=== PATIENT | female | born 1940 | race Caucasian/White ===

== ENCOUNTER → 2019-01-31 11:29 | Outpatient (CLI) | payer MEDICARE, OTHER, SELFPAY ==
--- NOTE | 2019-01-31 11:32 | DI.RAD.S_ITS ---
PROCEDURE: XR LUMBAR SPINE MIN 4V INDICATIONS: Lumbosacral spondylosis TECHNIQUE: 5 views of the lumbar spine were acquired. COMPARISON: [facility], MR, MR LUMBAR SPINE W&WO CON, 05/15/2017, 11:07. MR, LUMBAR SPINE W/O CONTRAST, 08/27/2012, 13:27. [facility], CR, SPINE LUMB 2 OR 3VW, 01/15/2016, 11:01. FINDINGS: Bones: 5 [id number] vertebrae are present. There is mild levoscoliosis normal bony alignment. No vertebral body compression fractures. No suspicious bony lesions. There is degenerative disc disease, severe at L3-L4 and L4-L5, mild at L1-L2, L2-L3 and L5-S1. Moderate to severe facet arthropathy at L4-L5 and L5-S1. There is a right hip prosthesis. Soft tissues: Overlying bowel gas pattern is normal. No suspicious soft tissue calcifications. Oblique images: No pars defects. IMPRESSION: Severe degenerative disc disease and moderate to severe facet arthropathy in lumbar spine. Dictated by: Jazmyn Beck M.D. on 01/31/2019 at 17:19 Approved by: Jazmyn Beck M.D. on 01/31/2019 at 17:23
== END ==
PROVIDERS: PCP Registered Nurse; Visit Provider Physical Medicine & Rehabilitation
DX: M47.817 Spondylosis without myelopathy or radiculopathy, lumbosacral region (principal); M47.816 Spondylosis without myelopathy or radiculopathy, lumbar region; M51.36 Other intervertebral disc degeneration, lumbar region; M51.37 Other intervertebral disc degeneration, lumbosacral region; Z96.641 Presence of right artificial hip joint
CPT/HCPCS: 72110; 99215

== ENCOUNTER 2019-02-13 12:59 | Outpatient (CLI) | payer MEDICARE, OTHER, SELFPAY ==
--- NOTE | 2019-02-13 13:03 | DI.RAD.S_ITS ---
PROCEDURE: PAIN L/S TRANSFORAMINAL INJECT INDICATIONS: Lumbosacral spondylosis FINDINGS: Fluoroscopic spot filming was performed to verify placement of spinal needles at the right L2-3 neural foramen region level(s), as labeled on the films. Appropriate location(s) of the needle tip(s) was confirmed by injection of iodinated contrast. IMPRESSION: Right L2-3 neural foraminal localization for epidural steroid injection. Dictated by: Romeo Bonds M.D. on 02/13/2019 at 15:15 Approved by: Romeo Bonds M.D. on 02/13/2019 at 15:16
[2019-02-13 13:30] VITALS: BP 128/78; PULSE 72; RESP 16; TEMP 36.1; O2SAT 97
[2019-02-13 14:10] VITALS: BP 149/61; PULSE 65; RESP 18; O2SAT 94
[2019-02-13] MEDS: MIDAZOLAM 5 MG/5 ML VIAL IV (14:10)
[2019-02-13 14:15] VITALS: BP 126/63; PULSE 67; RESP 16; O2SAT 94
[2019-02-13] MEDS: fentaNYL 100 MCG/2 ML INJ 50 MCG IV (14:15)
[2019-02-13 14:20] VITALS: BP 115/65; PULSE 69; RESP 16; O2SAT 97
--- NOTE | 2019-02-13 14:32 | P.PCN_ITS ---
Procedures Date/Time Date of procedure: 02/13/19 Time of procedure: 14:31 General Procedure description: PROVIDER: Eric Allan DO Operative Note PREOP DIAGNOSIS 1. FORAMINAL STENOSIS WITH LE SYMPTOMS, POST OP DIAGNOSIS 1. FORAMINAL STENOSIS WITH LE SYMPTOMS, PROCEDURES 1. FLUOROSCOPICALLY GUIDED CONTRAST CONTROLLED TRANSFORAMINAL EPIDURAL STEROID INJECTION - RIGHT L3/4 TFESI SURGEON: Eric Allan, DO INDICATIONS Angelica is referred by JAVI Cornejo for treatment of Foraminal Stenosis with right LE Symptoms FINDINGS Foraminal Nerve Root Compression secondary to disc disease and facet hypertrophy DESCRIPTION OF PROCEDURE Following denial of allergy and review of potential side effects and complications, including, but not necessarily limited to, infection, allergic reaction, local tissue breakdown, stroke, temporary or permanent nerve injury, paralysis, and possible , the patient indicated that the patient understood and agreed to proceed. An informed consent document was signed by the patient, witnessed by a nurse, and placed in the patient's chart. Additionally, other treatment options including medications, modalities, and physical therapy were reviewed with the patient. After review of previous anaesthesic history and IV conscious sedation the patient was deemed safe to proceed with todays procedure with IV conscious sedation as ASA class II designation. Safety time-out was performed to confirm patient ID, procedure to be performed and site of procedure. IV sedation was accomplished with a combination of 3mg of Versed and 50mcg of Fentanyl was administered by the RN after DO order, titrated to patient comfort during the course of the procedure while the patient remained responsive to all verbal commands In the prone position following sterile prep and drape of the lumbar region, the right L2/3 posterior neuroforamen was identified fluoroscopically. The skin was anesthetized via a 25-gauge 1.5-inch needle with 1% lidocaine solution. At this point, a 25-gauge 3.5-inch spinal needle was atraumatically introduced and advanced under fluoroscopic guidance through the posterior right L2/3 neuroforamen to approximately the anterior aspect of the canal. Depth was confirmed on lateral view. Following negative aspiration, injection of approximately 1.5 cc of Isovue 200 under live fluoroscopy in the AP view confirmed excellent flow along the nerve root, into the epidural space without vascular or intrathecal uptake observed Radiological data, including multiple fluoroscopic views of the lumbosacral spine, reveal a spinal needle at the right L3/4 posterior neuroforamen. Subse quent views show flow of contrast material flowing superiorly and inferiorly along the nerve root confirming epidural flow. Subsequently, a test dose of 1.5 cc of 1% lidocaine solution was administered and patient was observed for two minutes for signs or symptoms of complications, including abdominal pain, shortness of breath, bilateral upper or lower extremity weakness, nausea and vomiting, prior to steroid injection. At this point, a total of 2cc or 20mg of dexamethasone was injected without incident. The patient tolerated the procedure well without signs or symptoms of complications prior to transfer to the recovery area continued monitoring without incident. The patient was then transferred to the recovery area where they were observed for an appropriate time after the injection. The patient reported a VAS score of 7 prior to the procedure and a post-procedure VAS of 0. Total Fluoroscopy Time: 24.2 seconds Total Conscious Sedation Time: 24min POST OP INSTRUCTIONS The patient was provided a Pain Log to continue to record their response to the target-specific procedure prior to follow-up visit with their referring physician. Additionally, specific post-injection care instructions and a contact number to our office were provided if concerns arise regarding possible complications associated with the procedure are suspected. Eric Allna DO
[2019-02-13 14:36] VITALS: BP 129/71; PULSE 65; RESP 16; O2SAT 95
--- NOTE | 2019-02-13 14:37 | PC.NURSE ---
Pt tolerated procedure well. Able to get off the table with 2 person minimal assist. Transferred pt via wheelchair awake and alert to pre procedure room for continued monitoring with Breanne POLANCO.
[2019-02-13] MEDS: IOPAMIDOL 15 ML VIAL 3 ML INJ (14:38)
[2019-02-13] MEDS: BUPIVACAINE 0.25% (PF) VIAL 2 ML INJ (14:38)
--- NOTE | 2019-02-13 14:38 | PC.NURSE ---
ACCEPTED CARE OF PT IN STABLE CONDITION UPON ARRIVAL TO POST PROC AREA.
[2019-02-13] MEDS: DEXAMETHASONE 10 MG/ML VIAL 20 MG INJ (14:39)
[2019-02-13 14:42] VITALS: BP 126/61; PULSE 67; RESP 16; O2SAT 96
== END 2019-02-13 16:00 | disposition home or self-care (01) ==
PROVIDERS: Family Provider Chiropractor; PCP Registered Nurse; Visit Provider Physical Medicine & Rehabilitation
DX: M48.062 Spinal stenosis, lumbar region with neurogenic claudication (principal); M51.16 Intervertebral disc disorders with radiculopathy, lumbar region; M96.1 Postlaminectomy syndrome, not elsewhere classified
CPT/HCPCS: 64483; 99152; J1100; J2250; J3010

== ENCOUNTER → 2021-01-25 10:07 | Outpatient (CLI) | payer MEDICARE, OTHER, SELFPAY ==
--- NOTE | 2021-01-25 10:10 | DI.RAD.S_ITS ---
PROCEDURE: XR LUMBAR SPINE MIN 4V INDICATIONS: BACK PAIN TECHNIQUE: 5 views of the lumbar spine were acquired, including bilateral oblique views. COMPARISON: [facility], CR, XR LUMBAR SPINE MIN 4V, 01/31/2019, 11:40. FINDINGS: Bones: 5 nonrib-bearing vertebrae are present. There is mild levoscoliosis of lumbar spine centered at L3 level is again seen not significantly changed from previous study. Minimal anterolisthesis of L2 on L3 is noted. There is near complete loss of intervertebral disc space and degenerative endplate changes noted at L3-4 and L4-5 levels. Bilateral facet arthrosis at L3-4 through L5-S1 levels are also seen. No vertebral body compression fractures. No suspicious bony lesions. Soft tissues: Overlying bowel gas pattern is normal. No suspicious soft tissue calcifications. Oblique images: No pars defects. Right-sided bony foraminal stenosis is noted at L3-4 level. IMPRESSION: 1. Scoliosis of lumbar spine as above. Degenerative disc disease throughout lumbar spine more prominent at L3-4 through L5-S1 levels. 2. Grade 1 anterolisthesis of L2 on L3. No gross pars defect. Suggestion of right-sided bony foraminal stenosis at L3-4 level. Dictated by: Cleve Sood M.D. on 01/25/2021 at 11:02 Approved by: Cleve Sood M.D. on 01/25/2021 at 11:03
== END ==
PROVIDERS: Family Provider Chiropractor; PCP Family Medicine; Referring Provider Physical Medicine & Rehabilitation; Visit Provider Physical Medicine & Rehabilitation
DX: M48.062 Spinal stenosis, lumbar region with neurogenic claudication (principal); M51.37 Other intervertebral disc degeneration, lumbosacral region; M51.36 Other intervertebral disc degeneration, lumbar region; M43.16 Spondylolisthesis, lumbar region; M51.26 Other intervertebral disc displacement, lumbar region; M96.1 Postlaminectomy syndrome, not elsewhere classified; C54.1 Malignant neoplasm of endometrium; Z96.641 Presence of right artificial hip joint
CPT/HCPCS: 72110; 99214

== ENCOUNTER → 2021-02-04 11:03 | Outpatient (CLI) | payer MEDICARE, OTHER, SELFPAY ==
--- NOTE | 2021-02-04 11:05 | DI.MRI.S_ITS ---
PROCEDURE: MR LUMBAR SPINE WO CON INDICATIONS: Right lower extremity radiculopathy L3-4 TECHNIQUE: Noncontrast sagittal T1 spin echo and T2 fast echo, sagittal STIR, axial T1 and T2 fast spin echo through the lumbar spine. In cases with scoliosis, additional coronal T2 fast spin echo may be performed. COMPARISON: [facility], MR, MR LUMBAR SPINE W&WO CON, 05/15/2017, 11:07. [facility], CR, XR LUMBAR SPINE MIN 4V, 01/25/2021, 10:22. [facility], MR, LUMBAR SPINE W/O CONTRAST, 01/06/2014, 17:20. FINDINGS: Image quality: This examination is limited by involuntary motion artifact. Alignment and Curvature: Mild levoconvex scoliotic curvature is noted. Mild grade 1 anterolisthesis is seen at the L2-L3 level. There is minimal anterolisthesis seen at L3-L4 and L5-S1. Bone Marrow: Marrow is of normal overall signal. No acute vertebral body compression fractures. Spinal Cord: Conus medullaris terminates at the L1 level. Visualized cord demonstrates normal signal and size. Paraspinous Soft Tissues: No paravertebral masses. T12-L1: Normal appearance. L1-L2: [id number] loss of disc height and disc signal can be seen. Moderate generalized disc bulge is seen. There is a central disc protrusion seen. There is at least moderate right-sided and moderate to severe left-sided neural foraminal narrowing seen. Macrometastasis central L2-L3: Mild loss of disc height is seen. Loss of disc signal is seen. At least moderate disc bulge is seen, which is eccentric to the left. There is a central disc protrusion seen. There is moderate left-sided and at least moderate right-sided neural foraminal narrowing seen. Severe central canal narrowing is seen at this level. L3-L4: Moderate to severe loss of disc height and disc signal can be seen on the right side. Moderate disc bulge is seen, with a central disc protrusion. There is a focal annular fissure seen posteriorly. At least moderate facet hypertrophy can be seen at this level. There is moderate left-sided and moderate to severe right-sided neural foraminal narrowing seen. There is a degree of compression seen upon the exiting right L3 nerve root. At least moderate central canal narrowing is seen at this level. L4-L5: Moderate to severe loss of disc height and disc signal can be seen. At least moderate disc bulge is seen. Posteriorly projected endplate osteophytes are seen. At least moderate facet hypertrophy is seen at this level. There is [id number] right-sided and at least moderate left-sided neural foraminal narrowing seen at this level. Moderate central canal narrowing is seen. L5-S1: The disc height is well-preserved. Loss of disc signal is seen at this level. Moderate generalized disc bulge is seen. Moderate to prominent facet hypertrophy can be seen. There is mild right-sided and moderate to severe left-sided neural narrowing seen. There is a degree of compression seen upon the exiting left L5 nerve root. Minimal central canal narrowing is seen. IMPRESSION: Multiple levels of lumbar spine degenerative change are seen, which have overall progressed compared to 2017. This study is limited by motion artifact. Dictated by: Calvin Rosenbaum M.D. on 02/04/2021 at 11:20 Approved by: Calvin Rosenbaum M.D. on 02/04/2021 at 11:25
== END ==
PROVIDERS: Family Provider Chiropractor; PCP Family Medicine; Referring Provider Family Medicine; Visit Provider Physical Medicine & Rehabilitation
DX: M47.26 Other spondylosis with radiculopathy, lumbar region (principal); M47.27 Other spondylosis with radiculopathy, lumbosacral region; M96.1 Postlaminectomy syndrome, not elsewhere classified
CPT/HCPCS: 72148

== ENCOUNTER → 2021-03-01 15:43 | Outpatient (CLI) | payer MEDICARE, OTHER, SELFPAY ==
[2021-03-01 17:57] LABS: COVID19 -Nasal RAPID Negative (Negative)
== END ==
PROVIDERS: Family Provider Chiropractor; PCP Family Medicine; Visit Provider Physical Medicine & Rehabilitation
DX: Z01.812 Encounter for preprocedural laboratory examination (principal); Z20.822 Contact with and (suspected) exposure to COVID-19
CPT/HCPCS: 87635; C9803

== ENCOUNTER 2021-03-02 15:50 | Outpatient (CLI) | payer MEDICARE, OTHER, SELFPAY ==
[2021-03-02] VITALS (7 sets, daily range): BP systolic 122–190; BP diastolic 68–87; PULSE 67–76; RESP 16–22; TEMP 35.9; O2SAT 94–96
--- NOTE | 2021-03-02 15:54 | DI.RAD.S_ITS ---
PROCEDURE: PAIN L/S TRANSFORAMINAL INJECT INDICATIONS: SPONDYLOSIS COMPARISON: [facility], , PAIN L/S TRANSFORAMINAL INJECT, 02/13/2019, 14:21. FINDINGS: Fluoroscopic spot filming was performed to verify placement of a spinal needle at the L2-L3 level, as labeled on the films. Appropriate location of the needle tip was confirmed by injection of iodinated contrast. IMPRESSION: Intraprocedural examination within normal limits. Dictated by: Calvin Rosenbaum M.D. on 03/02/2021 at 16:10 Approved by: Calvin Rosenbaum M.D. on 03/02/2021 at 16:10
[2021-03-02] MEDS: fentaNYL 100 MCG/2 ML INJ 50 MCG IV (16:23)
[2021-03-02] MEDS: MIDAZOLAM 5 MG/5 ML VIAL IV (16:23)
[2021-03-02] MEDS: DEXAMETHASONE 10 MG/ML VIAL 20 MG INJ (16:28)
[2021-03-02] MEDS: BETAMETHASONE 30 MG/5 ML MDV 6 MG INJ (16:28)
[2021-03-02] MEDS: BUPIVACAINE 0.25% (PF) VIAL 2 ML INJ (16:29)
[2021-03-02] MEDS: IOPAMIDOL 15 ML VIAL 3 ML INJ (16:29)
--- NOTE | 2021-03-02 16:35 | P.PCN_ITS ---
Date/Time/Diagnoses Date of procedure: 03/02/21 Time of procedure: 16:35 Pre-procedure diagnosis: 1. FORAMINAL STENOSIS WITH LE SYMPTOMS Post-procedure diagnosis: same Procedure Notes Procedure: 1. FLUOROSCOPICALLY GUIDED CONTRAST CONTROLLED TRANSFORAMINAL EPIDURAL STEROID INJECTION - RIGHT L2/3 TFESI Indications: Angelica is referred by Dr. Gross for treatment of Foraminal Stenosis with right LE Symptoms Physician: Eric Allan Total Fluoroscopy time (seconds): 7 Total sedation minutes: 10 Complications: none Procedure in detail & Post-procedure care: FINDINGS Foraminal Nerve Root Compression secondary to disc disease and facet hypertrophy DESCRIPTION OF PROCEDURE Following review of allergy and review of potential side effects and complications, including, but not necessarily limited to, infection, allergic reaction, local tissue breakdown, stroke, temporary or permanent nerve injury, paralysis, and possible , the patient indicated that the patient understood and agreed to proceed. An informed consent document was signed by the patient, witnessed by a nurse, and placed in the patient's chart. Additionally, other treatment options including medications, modalities, and physical therapy were reviewed with the patient. After review of previous anaesthesic history and IV conscious sedation the patient was deemed safe to proceed with today?s procedure with IV conscious sedation as ASA class II designation. Safety time-out was performed to confirm patient ID, procedure to be performed and site of procedure. IV sedation was accomplished with a combination of 3mg of Versed and 50mcg of Fentanyl was administered by the RN after DO order, titrated to patient comfort during the course of the procedure while the patient remained responsive to all verbal co mmands In the prone position following sterile prep and drape of the lumbar region, the right L2/3 posterior neuroforamen was identified fluoroscopically. The skin was anesthetized via a 25-gauge 1.5-inch needle with 1% lidocaine solution. At this point, a 25-gauge 3.5-inch spinal needle was atraumatically introduced and advanced under fluoroscopic guidance through the posterior right L2/3 neur oforamen to approximately the anterior aspect of the canal. Depth was confirmed on lateral view. Following negative aspiration, injection of approximately 1.5 cc of Isovue 200 under live fluoroscopy in the AP view confirmed excellent flow along the nerve root, into the epidural space without vascular or intrathecal uptake observed Radiological data, including multiple fluoroscopic views of the lumbosacral spine, reveal a spinal needle at the right L2/3 posterior neuroforamen. Subsequent views show flow of contrast material flowing superiorly and inferiorly along the nerve root confirming epidural flow. Subsequently, a test dose of 1.5 cc of 1% lidocaine solution was administered and patient was observed for two minutes for signs or symptoms of complications, including abdominal pain, shortness of breath, bilateral upper or lower extremity weakness, nausea and vomiting, prior to steroid injection. At this point, a total of 3cc or 20mg of dexamethasone and 6mg of betamethasone was injected without incident. The patient tolerated the procedure well without signs or symptoms of complications prior to transfer to the recovery area continued monitoring without incident. The patient was then transferred to the recovery area where they were observed for an appropriate time after the injection. The patient reported a VAS score of 7 prior to the procedure and a post-procedure VAS of 0. POST OP INSTRUCTIONS The patient was provided a Pain Log to continue to record their response to the target-specific procedure prior to follow-up visit with their referring physician. Additionally, specific post-injection care instructions and a contact number to our office were provided if concerns arise regarding possible complications associated with the procedure are suspected.
== END 2021-03-02 16:56 | disposition home or self-care (01) ==
LOC: RAD 15:53
PROVIDERS: Family Provider Chiropractor; PCP Family Medicine; Referring Provider Physical Medicine & Rehabilitation; Visit Provider Physical Medicine & Rehabilitation
DX: M48.061 Spinal stenosis, lumbar region without neurogenic claudication (principal); M51.16 Intervertebral disc disorders with radiculopathy, lumbar region
CPT/HCPCS: 64483; 99152; J0702; J1100; J2250; J3010